=== PATIENT | female | born 1990 | race Caucasian/White ===

== ENCOUNTER 2017-01-28 08:42 | Emergency (ER) | payer OTHER ==
[~2017-01-28] VITALS: Ht 165.1 cm; Wt 123.8 kg
[~2017-01-28 08:42] MED LIST: ALBUTEROL0.09 MG/A1 INH; AMOXIL500 MG PO; AUGMENTIN 875 M1 TAB PO; AZITHROMYCIN250 MG PO; CIPRO500 MG PO; CLARITIN10 MG PO; MEDROL DOSEPAK4 MG PO; MOTRIN800 MG PO; MUCINEX600 MG PO; PREDNISONE10 MG PO; ROBITUSSIN5 ML PO; VICODIN 5/500 505 MG PO
[2017-01-28] MEDS ORDERED: NAPROSYN500 MG PO (09:19)
[2017-01-28 09:32] LABS: URINE AMPHETAMINES < 1000 (1000ng/ml); URINE BARBITURATES < 200 (200ng/ml); URINE COCAINE < 300 (300ng/ml)
== END 2017-01-28 11:57 | disposition home or self-care (01) ==
LOC: ED 08:42
PROVIDERS: Emergency Medicine
DX: S93.402A Sprain of unspecified ligament of left ankle, initial encounter (principal); R03.0 Elevated blood-pressure reading, without diagnosis of hypertension; X58.XXXA Exposure to other specified factors, initial encounter; Y93.89 Activity, other specified; Y92.89 Other specified places as the place of occurrence of the external cause; Y99.8 Other external cause status